=== PATIENT | male | born 1960 | race Caucasian/White ===

== ENCOUNTER → 2017-09-29 | Outpatient (REF) | payer BC | LOC: M SMT 17:55 | DX: C67.9 Malignant neoplasm of bladder, unspecified (principal) | CPT/HCPCS: 88108 ==

== ENCOUNTER → 2019-01-22 | Outpatient (POV) | payer BC ==
[~2019-01-22] VITALS: Ht 185.4 cm; Wt 108.2 kg
[~2019-01-22] MED LIST: BYST5TAB2 PO; VIAG100T PO; XARE10TA PO; XARE20TA PO
[2019-01-22 13:27] VITALS: BP 129/78
--- NOTE | 2019-01-23 09:32 | IRCOV ---
[facility] IR Consult Office Visit IR Consult Office Visit DATE: Jan 23, 2019 REASON FOR CONSULTATION/CHIEF COMPLAINT: Recurrent kidney infections. Left-sided hydronephrosis. HISTORY OF PRESENT ILLNESS: 58-year-old male with bladder cancer status post cystectomy in 2017 with ileal conduit formation. Status post chemotherapy. Was d oing well initially after the surgery. For the past several months has recurrently had pyelonephritis every month requiring antibiotics. At least one hospital admission for sepsis. Last time he was admitted and worked up, imaging was performed and patient reportedly has left-sided hydronephrosis. There is also concern for a possible stone at the ureteral anastomosis and tumor recurrence for which urology has requested a brush biopsy. Patient is active and works in construction. He denies fevers or chills. No pain. No problems with drainage from the ostomy. ALLERGIES: Please see below. HOME MEDICATIONS: Please see below. PAST MEDICAL HISTORY: 1. Bladder cancer. PAST SURGICAL HISTORY: 1. Cystectomy and ileal conduit formation. FAMILY HISTORY: Nonsignificant. SOCIAL HISTORY: Lives with . Very active and independent. Denies alcohol or drugs. REVIEW OF SYSTEMS: Otherwise negative. PHYSICAL EXAMINATION: VITAL SIGNS: Please see below. GENERAL APPEARANCE: Appears comfortable at rest. No wasting. HEENT: No scleral icterus. RESPIRATORY: Symmetric breath sounds bilaterally. CARDIOVASCULAR: Normal rate. ABDOMEN: Abdomen soft nontender. Nondistended. Right lower quadrant ostomy containing urine. EXTREMITIES: Moving all 4 extremities. NEUROLOGICAL: Alert and oriented. PSYCHIATRIC: Appropriate to circumstances. LABORATORY DATA: Please see below. Imaging: No imaging available for me to review. ASSESSMENT/PLAN: 58 male with history of bladder cancer status post cystectomy and ileal conduit formation with recurrent pyelonephritis and reported left- sided hydronephrosis identified on outside imaging. Will obtain outside imaging for review. Patient will benefit from left percutaneous nephrostomy access with possible nephro ileal conduit stenting. At the same time per request of urology, I can do a brush biopsy of the distal anastomosis. With this access, progressive angioplasty for any stricture will be an option to try to get him stent free. We discussed the risks and benefits of the procedure. I will schedule the patient for the procedure under moderate sedation and request for outside imaging. I spent 30 minutes in consultation with the patient. Thank you for this referral. VS, I&O, 24H, Fishbone Vital Signs/I&O Vital Signs Date Time Temp Pulse Resp B/P (MAP) Pulse Ox O2 Delivery O2 Flow Rate FiO2 01/22/19 13:27 98.3 104 18 129/78 (95) 95 CHANTAL RYAN MD Jan 23, 2019 09:32
== END ==
LOC: M IRPOV 13:10
PROVIDERS: ATTEND Radiology Diagnostic Radiology
DX: N13.30 Unspecified hydronephrosis (principal); Z87.448 Personal history of other diseases of urinary system; Z92.21 Personal history of antineoplastic chemotherapy; Z85.51 Personal history of malignant neoplasm of bladder

== ENCOUNTER → 2019-02-15 | Outpatient (CLI) | payer BC ==
[~2019-02-15] MED LIST changes: +ISOVUE-300 61% 50ML VIAL (Q9967) As Ordered ONE; +LIDOCAINE 1% MDV 20ML VIAL As Ordered ONE; +MIDAZOLAM INJ 2 MG/2 ML VIAL (J2250) As Ordered ONE; +PERCOCET 5MG/325MG TAB As Ordered ONE; +PERCOCET 5MG/325MG TAB PO ONE; +PERCOCET 5MG/325MG TAB PO PRN; -XARE20TA PO; +ceFAZolin 1GM INJ (J0690 PER 500MG) As Ordered ONE; +cefTRIAXone SOD 1 GM VIAL (J0696) As Ordered ONE; +diphenhydrAMINE INJ 50MG/ML VIAL (J1200) As Ordered ONE; +fentaNYL 100 MCG/2 ML INJECTION (J3010) As Ordered ONE
--- NOTE | 2019-02-15 10:04 | IRHP ---
[facility] IR Pre-Procedure H & P General Date of Service: Feb 15, 2019 Procedure: Same Day Surgery Interval History and Physical I have seen the patient and reviewed last H & P performed within 30 days. There is no significant interval change. History of Present Illness Chief Complaint The patient is a 58-year-old male admitted with a reason for visit of Ureteral Stricture. PRE-PROCEDURE DIAGNOSIS: ureteral stricture. conduit. HEART: normal rate. LUNGS: normal breathing at rest. ASA Classification ASA Classification: II-Mild systemic disease Mallampati Score: I, II NPO: Yes Problems with prior sedation: No Obstructive Sleep Apnea: No Plan moderate sedation Allergies Coded Allergies: No Known Allergies (Unverified , 02/15/19) Home Medications Scheduled Nebivolol HCl (Bystolic), 5 MG PO DAILY, (Reported) Rivaroxaban (Xarelto), 20 MG PO DAILY, (Reported) Discontinued Medications Sildenafil Citrate (Viagra), 100 MG PO 3XW, (Reported) Discontinued Reason: Pt states not taking VS, I&O, 24H, Fishbone Vital Signs/I&O Vital Signs Date Time Temp Pulse Resp B/P (MAP) Pulse Ox O2 Delivery O2 Flow Rate FiO2 02/15/19 09:34 97.9 97 16 98 CHANTAL RYAN MD Feb 15, 2019 10:04
[2019-02-15 10:58] LABS: CHOLESTEROL RISK RATIO 3.311 (<5)
--- NOTE | 2019-02-15 11:36 | POST-OPPD ---
Postoperative Procedure Note Date Of Procedure: Feb 15, 2019 Time Of Procedure: 11:35 PREOPERATIVE DIAGNOSIS: ureteral stricture POSTOPERATIVE DIAGNOSIS: ureteral stricture FINDINGS: ureteral stricture PROCEDURE: left neph SURGEON: Urvashi ANESTHESIA: moderate sedation ESTIMATED BLOOD LOSS: < 5 ml COMPLICATIONS: none POSTOPERATIVE CONDITION:stable CHANTAL RYAN MD Feb 15, 2019 11:36
[2019-02-15 13:55] VITALS: BP 120/77
--- NOTE | 2019-02-15 16:43 | REP ---
IR Percutaneous nephrostomy catheter placement using fluoroscopy and ultrasound guidance. IR nephrostogram and ureterogram. IR moderate sedation. Ultrasound of the left kidney. Clinical information: Status post cystectomy with ileal conduit. Left-sided hydronephrosis and infections. Ureteral stricture. Left flank pain. Physician: Dr Landin. Procedure: The patient was advised of the benefits, risks and alternatives of the procedure and informed consent was obtained. The time-out was performed with verification of the patient's name, MRN, site of procedure and type of procedure to be performed. The patient was positioned in the prone position on the angiographic table. The site was prepped and draped in the usual sterile fashion. Moderate sedation was performed by the physician including the presence of an independent trained observer who assisted in monitoring the patient's level of consciousness and physiologic status. Following the administration of fentanyl and Versed , the physician spent 45 minutes of face to face time with the patient. A chief controller tower radiograph reveals no gross abnormality. The anticipated puncture site on the flank was anesthetized with lidocaine. Using ultrasound guidance, a midpole calyx was accessed with a 21 gauge Chiba needle. A nephrostogram and ureterogram was performed demonstrating hydronephrosis. An 018 wire was then advanced into the collecting system. The needle was then exchanged for a non vascular introducer set. An Amplatz wire was then advanced into the ureter. A 10-Belarusian nephrostomy catheter was then advanced into the renal collecting system. The pigtail was formed and locked in position. A final nephrostogram ureterogram was performed confirming position of the pigtail in the renal pelvis and hydronephrosis. There is hydroureter and distal ureteral obstruction. The catheter was sutured in position with 2-0 Prolene and a sterile dressing was applied. The catheter was placed gravity drainage. The patient tolerated the procedure well and was returned to the PRU in stable condition. EBL: < 5 ml. Complications: none. Conclusion: 1. Nephrostogram and ureterogram demonstrate hydronephrosis and hydroureter and distal ureteral obstruction at the anastomosis. 2. Successful left-sided nephrostomy catheter placement. Patient to follow up in IR in 2 weeks for attempt at distal recanalization. Thank you for this referral. Electronically Signed by Dee Landin MD 02/15/2019 04:42 P
== END ==
LOC: M IRPRO 09:15
PROVIDERS: ATTEND Radiology Diagnostic Radiology
DX: N13.0 Hydronephrosis with ureteropelvic junction obstruction (principal); N13.4 Hydroureter
CPT/HCPCS: 50432; 80061; 99152; 99153; C1729; C1769; C1887; C1894; J0690; J1200; J2250; J3010; Q9967

== ENCOUNTER → 2019-03-08 | Outpatient (CLI) | payer BC ==
[~2019-03-08] MED LIST changes: -PERCOCET 5MG/325MG TAB As Ordered ONE; -PERCOCET 5MG/325MG TAB PO ONE; -PERCOCET 5MG/325MG TAB PO PRN; +XARE20TA PO; -cefTRIAXone SOD 1 GM VIAL (J0696) As Ordered ONE
--- NOTE | 2019-03-08 13:24 | POST-OPPD ---
Postoperative Procedure Note Date Of Procedure: Mar 08, 2019 Time Of Procedure: 13:23 PREOPERATIVE DIAGNOSIS: ilieal conduit stricture. bladder ca POSTOPERATIVE DIAGNOSIS: ilieal conduit stricture. bladder ca FINDINGS: ilieal conduit stricture PROCEDURE: ilieal conduit/ureteral stenting SURGEON: cris ANESTHESIA: mod sed ESTIMATED BLOOD LOSS: < 5 ml COMPLICATIONS: none POSTOPERATIVE CONDITION: stable CHANTAL RYAN MD Mar 08, 2019 13:24
[2019-03-08 14:30] VITALS: BP 120/68
--- NOTE | 2019-03-08 15:11 | REP ---
IR Nephrostomy to reverse ileal conduit stent conversion. IR Nephrostogram and ureterogram. IR ureteral stenting. IR ileoconduit stenting. IR moderate sedation. Clinical information: Bladder cancer status post cystectomy, ureteral diversion and ileal conduit formation. Right lower quadrant ostomy. Left ureteral anastomotic obstruction. Would like internalization of existing left nephrostomy catheter. Physician: Dr. Landin. Procedure: The patient was advised of the benefits, risks and alternatives of the procedure and informed consent was obtained. The time-out was performed with verification of the patient's name, MRN, site of procedure and type of procedure to be performed. The patient was positioned in the semi prone position on the angiographic table. The site was prepped and draped in the usual sterile fashion. Moderate sedation was performed by the physician including the presence of an independent trained observer who assisted in monitoring the patient's level of consciousness and physiologic status. Following the administration of Versed and Fentanyl, the physician spent 60 minutes of continuous face to face time with the patient. A photonic laboratory technician radiograph reveals a left sided nephrostomy catheter in expected location. An initial nephrostogram and ureterogram was performed through the preexisting catheter confirming pigtail positioned in the renal collecting system. There is hydronephrosis, hydroureter and distal ureteral obstruction. Lidocaine was injected around the catheter exit site. The catheter and sutures were cut, a glide wire was passed into the renal collecting system. The preexisting nephrostomy catheter was removed over the wire. A 5-Georgian glide catheter was advanced over the wire under fluoroscopy guidance. The catheter in conjunction with the wire was used to catheterize the ureter. The catheter and wire in conjunction were used to negotiate the distal ureteral obstruction into the ileal conduit and out of the right lower quadrant ostomy. The wire was exchanged for a superstiff Amplatz wire. The catheter was removed over the wire. And 8.5 Georgian APDL was destrung and advanced in reverse fashion through the ostomy, over the wire under fluoroscopy guidance into the left renal pelvis. The wire and inner stiffener were removed. Injection of contrast through the ileal conduit stent catheter confirms location within the ureter and in the renal pelvis. A final nephrostogram and ureterogram was performed confirming position of the pigtail in the renal pelvis and hydroureter. An ostomy bag was placed over the ostomy. The patient tolerated the procedure well and was returned to the PRU in stable condition. EBL: Less than 5 ml. Complications: None. Conclusion: 1. Nephrostogram and ureterogram demonstrate hydroureter and distal ureteral ileoconduit obstruction 2. Successful recanalization of distal ureteral/ileal conduit obstruction and placement of reverse ileal conduit stent through the ostomy into the left kidney. Due to patient discomfort we did not proceed with a brush biopsy on this occasion. Patient to return in 3 months for brush biopsy of the stricture and routine exchange of the catheter. Thank you this referral. Electronically Signed by Dee Landin MD 03/08/2019 03:10 P
== END ==
LOC: M IRPRO 08:31
PROVIDERS: ATTEND Radiology Diagnostic Radiology
DX: N13.1 Hydronephrosis with ureteral stricture, not elsewhere classified (principal); N13.4 Hydroureter; C67.9 Malignant neoplasm of bladder, unspecified; Z93.2 Ileostomy status; Z90.6 Acquired absence of other parts of urinary tract
CPT/HCPCS: 50693; 99152; 99153; C1729; C1769; C1887; J0690; J1200; J2250; J3010; Q9967

== ENCOUNTER → 2019-05-17 | Outpatient (REF) | payer BC ==
[~2019-05-17] MED LIST changes: -ISOVUE-300 61% 50ML VIAL (Q9967) As Ordered ONE; -LIDOCAINE 1% MDV 20ML VIAL As Ordered ONE; -MIDAZOLAM INJ 2 MG/2 ML VIAL (J2250) As Ordered ONE; -XARE20TA PO; -ceFAZolin 1GM INJ (J0690 PER 500MG) As Ordered ONE; -diphenhydrAMINE INJ 50MG/ML VIAL (J1200) As Ordered ONE; -fentaNYL 100 MCG/2 ML INJECTION (J3010) As Ordered ONE
== END ==
LOC: M SMT 13:20
PROVIDERS: ATTEND Urology
DX: N39.0 Urinary tract infection, site not specified (principal); C67.9 Malignant neoplasm of bladder, unspecified

== ENCOUNTER → 2019-06-05 | Outpatient (CLI) | payer BC ==
[~2019-06-05] MED LIST changes: +ISOVUE-300 61% 50ML VIAL (Q9967) As Ordered ONE; +LIDOCAINE 1% MDV 20ML VIAL As Ordered ONE; +LIDOCAINE 2% INJ 100 MG/5 ML SDV (FOR ANES.) ONE; +LR 1,000 ML IV SCH; +METOPROLOL 5 MG/5 ML VIAL ONE; +ONDANSETRON 4MG/2ML VIAL (J2405) IV PRN; +ONDANSETRON 4MG/2ML VIAL (J2405) ONE; +XARE20TA PO; +ceFAZolin 1GM INJ (J0690 PER 500MG) As Ordered ONE; +dexameTHASONE 4 MG/ML 1ML VIAL (J1100) ONE; +fentaNYL 100 MCG/2 ML INJECTION (J3010) IV PRN; +propofoL 200 MG/20 ML VIAL ONE
[2019-06-05 11:25] VITALS: BP 138/71
--- NOTE | 2019-06-06 11:26 | REP ---
IR conduit stent exchange. IR Ileoconduit stent exchange with fluoroscopy guidance. IR brush biopsies at ureteral stricture. Clinical information: Bladder cancer status post cystectomy and ileal conduit formation. Recurrent stricture at the ureteral anastomosis. Physician: Dr. Landin. Procedure: The patient was advised of the benefits, risks and alternatives of the procedure and informed consent was obtained. The time-out was performed with verification of the patient's name, MRN, site of procedure and type of procedure to be performed. The patient was positioned in the supine position on the angiographic table. The site was prepped and draped in the usual sterile fashion. Sedation was performed by the anesthesia team. The physician spent 45 minutes of continuous face to face time with the patient. A transportation maintenance supervisor radiograph reveals a left nephroureteral stent in place. A nephrostogram was performed through the existing ileoconduit stent and this demonstrates appropriate positioning in the renal pelvis. There is moderate hydronephrosis. A wire was advanced through the stent into the renal collecting system and the catheter was removed over the wire. An 8-Macanese sheath was advanced over the wire into the renal collecting system. A second safety wire was advanced through the sheath into the renal collecting system. One wire was removed and a brush biopsy device was advanced through the sheath under fluoroscopy guidance to the ureteral stricture. Zoe biopsy was obtained under fluoroscopy guidance, at the ureteral stricture. The device was removed and placed in Cytolyte. The sheath was removed over the wire. A new 8.5 Macanese multipurpose catheter was advanced over the wire and positioned in the renal collecting system. The wire was removed. A final nephrostogram confirms appropriate location within the ureter and renal collecting system. The patient tolerated the procedure well and was returned to PRU in stable condition. EBL: Less than 5 ml. Complications: None. Impression: 1. Successful brush biopsy at ureteral stricture. 2. Successful conduit stent exchange. The patient should return in 12 weeks for routine exchange. Thank you this referral. Electronically Signed by Dee Landin MD 06/06/2019 07:51 A
== END ==
LOC: M IRPRO 08:02
PROVIDERS: ATTEND Radiology Diagnostic Radiology
DX: N13.1 Hydronephrosis with ureteral stricture, not elsewhere classified (principal); C67.9 Malignant neoplasm of bladder, unspecified; I48.91 Unspecified atrial fibrillation; F17.210 Nicotine dependence, cigarettes, uncomplicated; K21.9 Gastro-esophageal reflux disease without esophagitis; Z79.01 Long term (current) use of anticoagulants
CPT/HCPCS: 50688; 75984; 88173; 99152; 99153; C1729; C1769; C1894; J0690; J1100; J2405; Q9967

== ENCOUNTER → 2019-08-12 | Outpatient (REF) | payer BC ==
[~2019-08-12] MED LIST changes: -ISOVUE-300 61% 50ML VIAL (Q9967) As Ordered ONE; -LIDOCAINE 1% MDV 20ML VIAL As Ordered ONE; -LIDOCAINE 2% INJ 100 MG/5 ML SDV (FOR ANES.) ONE; -LR 1,000 ML IV SCH; -METOPROLOL 5 MG/5 ML VIAL ONE; -ONDANSETRON 4MG/2ML VIAL (J2405) IV PRN; -ONDANSETRON 4MG/2ML VIAL (J2405) ONE; -ceFAZolin 1GM INJ (J0690 PER 500MG) As Ordered ONE; -dexameTHASONE 4 MG/ML 1ML VIAL (J1100) ONE; -fentaNYL 100 MCG/2 ML INJECTION (J3010) IV PRN; -propofoL 200 MG/20 ML VIAL ONE
== END ==
LOC: M SMT 13:12
PROVIDERS: ATTEND Urology
DX: C67.9 Malignant neoplasm of bladder, unspecified (principal)

== ENCOUNTER → 2019-11-25 | Outpatient (CLI) | payer BC ==
[~2019-11-25] MED LIST changes: +CIPR-249 PO; +HEARTAB PO; +METO1TAB7 PO; +TRAM50TA2 PO
== END ==
LOC: M LABSMTC 14:19
PROVIDERS: ATTEND Anesthesiology
DX: Z01.818 Encounter for other preprocedural examination (principal)
CPT/HCPCS: C9803; U0003

== ENCOUNTER → 2019-11-28 | Outpatient (CLI) | payer BC ==
[~2019-11-28] MED LIST changes: +ISOVUE-300 61% 50ML VIAL As Ordered ONE; +LIDOCAINE 1% MDV 20ML VIAL As Ordered ONE; +METOCLOPRAMIDE INJ 10MG/2ML VIAL (J2765 PER 1) As Ordered ONE; +METOCLOPRAMIDE INJ 10MG/2ML VIAL (J2765 PER 1) IV PRN; +NS 1,000 ML IV SCH; +ONDANSETRON 4MG/2ML VIAL As Ordered ONE; +ONDANSETRON 4MG/2ML VIAL IV PRN; +PERCOCET 5MG/325MG TAB As Ordered ONE; +PERCOCET 5MG/325MG TAB PO PRN; +ceFAZolin 1GM VIAL (J0690 PER 500MG) As Ordered ONE; +oxyCODONE 5MG TAB As Ordered ONE; +oxyCODONE 5MG TAB PO ONE
--- NOTE | 2019-11-28 12:11 | POST-OPPD ---
Postoperative Procedure Note Date Of Procedure: Nov 28, 2019 Time Of Procedure: 12:08 PREOPERATIVE DIAGNOSIS: ileal conduit. left anastomotic stricture. hydronephrosis. POSTOPERATIVE DIAGNOSIS: same FINDINGS: same PROCEDURE: left ilial conduit anastomotic angioplasty to 6 mm and 10 F nephroureteral stent placement SURGEON: cris ESTIMATED BLOOD LOSS: < 5 ml COMPLICATIONS:none POSTOPERATIVE CONDITION: stable CHANTAL RYAN MD Nov 28, 2019 12:11
[2019-11-28] MEDS: PERCOCET 5MG/325MG TAB PO PRN ×2 (12:35→13:27)
[2019-11-28 14:35] VITALS: BP 124/57
--- NOTE | 2019-12-04 15:53 | REP ---
IR Percutaneous left nephrostomy access using fluoroscopy and ultrasound guidance. IR Nephrostogram and ureterogram. IR Recanalization of stenotic ureteral anastomosis and antegrade catheterization of ileal conduit. IR Angioplasty and dilation of ureteral anastomosis. IR Nephroureteral stent placement. Clinical information: Status post cystectomy with ileal conduit. Left flank pain, hydronephrosis and hydroureter due to ureteral anastomotic stricture. Physician: Dr Landin. Procedure: The patient was advised of the benefits, risks and alternatives of the procedure and informed consent was obtained. The time-out was performed with verification of the patient's name, MRN, site of procedure and type of procedure to be performed. The patient was positioned in the prone position on the angiographic table. The site was prepped and draped in the usual sterile fashion. General anesthesia was performed by the anesthesia team. The physician spent 90 minutes face to face time with the patient. A traveling storekeeper radiograph reveals no gross abnormality. The anticipated puncture site on the flank was anesthetized with lidocaine. The left renal pelvis was accessed under fluoroscopy guidance using a 21 gauge Chiba needle. A nephrostogram and ureterogram was performed demonstrating hydronephrosis and hydroureter. A second 21 gauge Chiba needle was then used under fluoroscopy guidance to access the lower pole azul. A wire was advanced through the needle under fluoroscopy guidance down the ureter. The needle was then exchanged for a non vascular introducer set which was advanced under fluoroscopy guidance, over the wire and down into the ureter. A Glidewire was then advanced through the introducer set, under fluoroscopy guidance down the ureter. A kumpe catheter was advanced over the wire and used to catheterize the distal ureter. A ureterogram was performed and this demonstrates hydroureter and hydronephrosis. No passage of contrast through the ureteral anastomosis into the ileal conduit. The catheter in conjunction with a wire was then used under fluoroscopy guidance to recanalize the stenotic ureteral anastomosis and catheterize the ileal conduit. The wire was removed and injection of contrast confirmed appropriate catheterization of the ileoconduit. An Amplatz wire was advanced through the catheter into the ileal conduit. The catheter was removed over the wire. A 6 x 100 mm Marcell balloon was then advanced over the wire, under fluoroscopy guidance and positioned at the ureteral anastomosis. Prolonged inflation and dilation of the ureteral anastomosis was performed. The balloon was then deflated and removed over the wire. A 10-Telugu nephroureteral stent was then advanced over the wire and positioned with the distal pigtail in the ileal conduit. Injection of contrast confirmed positioning of the nephroureteral stent in the ureter and ileal conduit. No extravasation. The catheter was sutured in position with 2-0 Prolene and a sterile dressing was applied. The catheter was placed gravity drainage. The patient tolerated the procedure well and was returned to the recovery in stable condition. EBL: < 5 ml. Complications: None. Conclusion: 1. Nephrostogram and ureterogram demonstrate left hydronephrosis and hydroureter and complete ureteral anastomotic blockage. 2. Successful left-sided antegrade nephrostomy access, ureteral anastomotic angioplasty and nephroureteral ileal conduit stent placement. 3. Patient to return in 3 months for routine exchange and repeat angioplasty. Thank you for this referral. Cc Dr. Jensen Electronically Signed by Dee Landin MD 12/04/2019 03:51 P
== END ==
LOC: M IRPRO 08:17
PROVIDERS: ATTEND Radiology Diagnostic Radiology
DX: C67.9 Malignant neoplasm of bladder, unspecified (principal); N13.30 Unspecified hydronephrosis; N13.4 Hydroureter; N13.5 Crossing vessel and stricture of ureter without hydronephrosis; N52.32 Erectile dysfunction following radical cystectomy; I48.91 Unspecified atrial fibrillation; F17.210 Nicotine dependence, cigarettes, uncomplicated; K21.9 Gastro-esophageal reflux disease without esophagitis; Z79.01 Long term (current) use of anticoagulants; Z79.899 Other long term (current) drug therapy; Z92.21 Personal history of antineoplastic chemotherapy
CPT/HCPCS: 50690; 50706; 53899; J0690; J2405; J2765; Q9967

== ENCOUNTER → 2019-12-03 | Outpatient (POV) | payer BC ==
[~2019-12-03] MED LIST changes: -ISOVUE-300 61% 50ML VIAL As Ordered ONE; -LIDOCAINE 1% MDV 20ML VIAL As Ordered ONE; -METOCLOPRAMIDE INJ 10MG/2ML VIAL (J2765 PER 1) As Ordered ONE; -METOCLOPRAMIDE INJ 10MG/2ML VIAL (J2765 PER 1) IV PRN; -NS 1,000 ML IV SCH; -ONDANSETRON 4MG/2ML VIAL As Ordered ONE; -ONDANSETRON 4MG/2ML VIAL IV PRN; -PERCOCET 5MG/325MG TAB As Ordered ONE; -PERCOCET 5MG/325MG TAB PO PRN; -ceFAZolin 1GM VIAL (J0690 PER 500MG) As Ordered ONE; -oxyCODONE 5MG TAB As Ordered ONE; -oxyCODONE 5MG TAB PO ONE
--- NOTE | 2019-12-04 10:31 | IRPN ---
[facility] IR Progress Note IR Progress Note DATE: Dec 03, 2019 Patient requested this telephone consultation. Duration of call 30 minutes. FOLLOW-UP: Patient with ilial conduit and left ureteral anastomotic stricture, underwent left nephroureteral stent placement and anastomotic angioplasty to 6 mm, last . Patient states he developed a fever the day after for which he was started on Levaquin. No further fevers or chills since starting antibiotics. He reports minimal discomfort at the left flank. Good drainage in bag, he states it is clear yellow. It is still attached to a bag. Good drainage from ilial conduit. IMPRESSION: Transient fever 24 hours post procedure likely related to transient bacteremia from access, manipulation and angioplasty, despite perioperative antibiotics. Has since resolved. Complete course of antibiotics. Patient may now cap the nephroureteral catheter, we will mail the patient a cap. Continue daily flushing of nephU. Follow up for routine exchange in 3 months. Thank you for this referral cc Dr. Jensen Allergies Coded Allergies: No Known Allergies (Unverified , 02/15/19) CHANTAL RYAN MD Dec 04, 2019 10:31
== END ==
LOC: M TMIRPOV 10:28
PROVIDERS: ATTEND Radiology Diagnostic Radiology
DX: Z48.816 Encounter for surgical aftercare following surgery on the genitourinary system (principal)

== ENCOUNTER → 2020-01-30 | Outpatient (CLI) | payer BC ==
[~2020-01-30] MED LIST changes: +ISOVUE-300 61% 50ML VIAL As Ordered ONE; +LIDOCAINE 1% MDV 20ML VIAL As Ordered ONE; +MIDAZOLAM INJ 2MG/2ML VIAL (J2250 PER 1MG) As Ordered ONE; +PROMETHAZINE INJ 25 MG/ML VIAL (J2550) As Ordered ONE; +ceFAZolin 1GM VIAL (J0690 PER 500MG) As Ordered ONE; +diphenhydrAMINE 50MG/ML VIAL (J1200) As Ordered ONE; +fentaNYL 100 MCG/2 ML INJECTION (J3010) As Ordered ONE
[2020-01-30 10:56] LABS: HEMATOCRIT 47.3 % (42.0-52.0); HEMOGLOBIN 15.8 g/dl (13.5-17.5); MEAN CORPUSCULAR HEMOGLOBIN 29.2 pg (27.0-33.0); MEAN CORPUSCULAR HGB CONC 33.4 g/dl (32.0-36.5); MEAN CORPUSCULAR VOLUME 87.4 fl (80.0-96.0); PLATELET COUNT, AUTOMATED 215 10^3/uL (150-450); RED BLOOD COUNT 5.41 10^6/uL (4.30-6.10); WHITE BLOOD COUNT 12.2 10^3/uL (4.0-10.0)
[2020-01-30 11:14] LABS: CALCIUM LEVEL 9.4 MG/DL (8.8-10.2); CREATININE FOR GFR 1.42 MG/DL (0.70-1.30); GLOMERULAR FILTRATION RATE 54.1 (>49)
--- NOTE | 2020-01-30 11:43 | POST-OPPD ---
Postoperative Procedure Note Date Of Procedure: Jan 30, 2020 Time Of Procedure: 11:37 PREOPERATIVE DIAGNOSIS: Ilial conduit stenosis. Bladder cancer. Cystectomy. POSTOPERATIVE DIAGNOSIS: same. FINDINGS: left distal ureteral occlusion. Hydronephrosis and hydroureter. PROCEDURE: Left nephU conduit stent exchanged for 10 F left nephrostomy tube. Attached to gravity drainage. Patient to follow-up with urology at [facility] for revision ileal conduit surgery as planned. The nephrostomy catheter may be capped and/or removed post surgery, by urology and/or IR if appropriate. If the catheter is still in place in 3 months time, patient will need to return to us for nephrostogram, ureterogram and catheter removal and/or exchange. Continue daily flushes of nephrostomy catheter. Physician: Urvashi ANESTHESIA: Moderate sedation ESTIMATED BLOOD LOSS: Less than 5 mL COMPLICATIONS: None POSTOPERATIVE CONDITION: Stable Cc [facility] urology patient's surgeon CC CHANTAL Min MD Jan 30, 2020 11:43
[2020-01-30 12:10] VITALS: BP 96/54
--- NOTE | 2020-02-20 12:29 | POST-OPPD ---
Postoperative Procedure Note Date Of Procedure: Jan 30, 2020 Time Of Procedure: 16:00 Full note IR nephroureteral stent to nephrostomy catheter conversion. IR Nephrostogram and ureterogram. Clinical information: Bladder cancer status post cystectomy with ileal conduit and ureteral anastomotic stricture. Left-sided hydronephrosis. Physician: Dr. Landin. Procedure: The patient was advised of the benefits, risks and alternatives of the procedure and informed consent was obtained. The time-out was performed with verification of the patient's name, MRN, site of procedure and type of procedure to be performed. The patient was positioned in the prone position on the angiographic table. The site was prepped and draped in the usual sterile fashion. Moderate sedation was performed by the physician including the presence of an independent trained observer who assisted and monitored the patient's level of consciousness and physiologic status. Following the administration of fentanyl and Versed , the physician spent 30 minutes of continuous face to face time wi th the patient. A reliability technicians radiograph reveals an antegrade left nephroureteral ileal conduit stent. The catheter was cut, an Amplatz wire was passed through the catheter under fluoroscopy guidance and the catheter was removed over the wire. A new 10 -Czech nephrostomy catheter was advanced over the wire, under fluoroscopy guidance into the renal collecting system. The wire was removed and pigtail was formed. Injection of contrast confirms location of the pigtail in the left renal pelvis. There is hydronephrosis and hydroureter. The ureter is not patent to the ileal conduit. The catheter was secured in position with 2-0 Prolene and a sterile dressing was applied. The catheter was placed gravity drainage. The patient tolerated the procedure well and was returned to the [facility] in stable condition. EBL: Less than 5 ml. Complications: None. Conclusion: 1. Nephrostogram and ureterogram demonstrate hydronephrosis and hydroureter. The ureter is not patent to the ileal conduit. 2. Successful left-sided nephroureteral catheter to nephrostomy conversion. Patient to follow-up for surgery at [facility]. The nephrostomy catheter may be capped and/or removed after surgery if appropriate. If the catheter remains in place greater than 10 weeks, patient must return for routine exchange. Thank you this referral. Cc Patient's urologist at [facility]. CHANTAL LANDIN MD Feb 20, 2020 12:29
== END ==
LOC: M IRPRO 10:12
PROVIDERS: ATTEND Radiology Diagnostic Radiology
DX: T83.85XA Stenosis due to genitourinary prosthetic devices, implants and grafts, initial encounter (principal); X58.XXXA Exposure to other specified factors, initial encounter; C67.9 Malignant neoplasm of bladder, unspecified; N13.30 Unspecified hydronephrosis; N13.5 Crossing vessel and stricture of ureter without hydronephrosis
CPT/HCPCS: 50688; 75984; 80048; 85027; 99152; 99153; C1729; C1769; J0690; J1200; J2250; J3010; Q9967

== ENCOUNTER → 2020-04-17 | Outpatient (CLI) | payer BC ==
[~2020-04-17] MED LIST changes: -ISOVUE-300 61% 50ML VIAL As Ordered ONE; -LIDOCAINE 1% MDV 20ML VIAL As Ordered ONE; -MIDAZOLAM INJ 2MG/2ML VIAL (J2250 PER 1MG) As Ordered ONE; -PROMETHAZINE INJ 25 MG/ML VIAL (J2550) As Ordered ONE; -ceFAZolin 1GM VIAL (J0690 PER 500MG) As Ordered ONE; -diphenhydrAMINE 50MG/ML VIAL (J1200) As Ordered ONE; -fentaNYL 100 MCG/2 ML INJECTION (J3010) As Ordered ONE
--- NOTE | 2020-04-17 16:34 | REP ---
INDICATION: N13.5-URETERAL STRICTURE; LT, S/P REPAIR. COMPARISON: None. FINDINGS: Multiple ultrasonographic images of the right kidney show the right kidney to measure 12.1 x 5.4 x 4.7 cm.. The renal cortical echotexture is unremarkable. There are no masses. There is good corticomedullary differentiation. There is no hydronephrosis. There are no perinephric fluid collections. Multiple ultrasonographic images of the left kidney show the left kidney to measure 5.6 x 4.2 x 4.7 cm.. The renal cortical echotexture is unremarkable. There are no masses. There is good corticomedullary differentiation. There is mild hydronephrosis. There are no perinephric fluid collections. IMPRESSION: 1. 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 2. Probable mild compensatory enlargement of the right kidney. 3. Mild left-sided hydronephrosis. <Electronically signed by Cali Abbott > 04/17/20 [id number]
== END ==
LOC: M RAD 14:50
PROVIDERS: ATTEND Urology
DX: N13.30 Unspecified hydronephrosis (principal)

== ENCOUNTER → 2021-12-01 | Outpatient (REF) | payer BC | LOC: M SMT 13:46 | PROVIDERS: ATTEND Urology | DX: C67.9 Malignant neoplasm of bladder, unspecified (principal) ==

== ENCOUNTER 2023-01-21 19:31 | Emergency (ER) | payer BC ==
[~2023-01-21] VITALS: Ht 185.4 cm; Wt 111.7 kg
[2023-01-21 20:37] LABS: VENOUS BASE EXCESS -0.4 (-2.0-2.0); VENOUS HCO3 27.5 MMOL/L (23.0-27.0); VENOUS O2 SATURATION 63.3 % (60.0-80.0); VENOUS PARTIAL PRESSURE CO2 57.3 mmHg (38.0-50.0); VENOUS PARTIAL PRESSURE O2 32.2 mmHg (30.0-50.0); VENOUS PH 7.299 UNITS (7.330-7.430); VENOUS STANDARD HCO3 23.1 MMOL/L; VENOUS TOTAL CO2 29.3 MMOL/L (24.0-28.0)
[2023-01-21 20:44] LABS: BASO # 0.1 10^3/uL (0.0-0.2); BASO % 0.4 % (0.0-1.0); EOS # 0.1 10^3/uL (0.0-0.5); HEMATOCRIT 49.9 % (42.0-52.0); HEMOGLOBIN 16.4 g/dl (13.5-17.5); LYMPH # 2.3 10^3/uL (1.5-5.0); LYMPH % 19.4 % (24.0-44.0); MEAN CORPUSCULAR HEMOGLOBIN 30.1 pg (27.0-33.0); MEAN CORPUSCULAR HGB CONC 32.9 g/dl (32.0-36.5); MEAN CORPUSCULAR VOLUME 91.6 fl (80.0-96.0); MONO # 0.9 10^3/uL (0.0-0.8); MONO % 7.7 % (2.0-8.0); NEUTROPHILS # 8.3 10^3/uL (1.5-8.5); PLATELET COUNT, AUTOMATED 221 10^3/uL (150-450); RED BLOOD COUNT 5.45 10^6/uL (4.30-6.10); WHITE BLOOD COUNT 11.7 10^3/uL (4.0-10.0)
[2023-01-21 21:05] LABS: ALBUMIN 3.5 G/DL (3.2-5.2); ALKALINE PHOSPHATASE 124 U/L (46-116); ALT/SGPT 31 U/L (7.0-40); AST/SGOT 19 U/L (<34); BILIRUBIN,TOTAL 0.5 MG/DL (0.3-1.2); BLOOD UREA NITROGEN 23 MG/DL (9-23); CALCIUM LEVEL 9.5 MG/DL (8.3-10.6); CARBON DIOXIDE LEVEL 31 MMOL/L (20-31); CHLORIDE LEVEL 106 MMOL/L (98-107); CREATININE FOR GFR 1.27 MG/DL (0.70-1.30); GLOMERULAR FILTRATION RATE > 60.0 (>49); GLUCOSE, FASTING 105 MG/DL (74-106); POTASSIUM SERUM 4.8 MMOL/L (3.5-5.1); SODIUM LEVEL 143 MMOL/L (136-145); TOTAL PROTEIN 6.5 G/DL (5.7-8.2)
[2023-01-21 21:07] LABS: INR 0.97; PROTHROMBIN TIME 12.6 SECONDS (12.5-14.5)
[2023-01-21 21:08] LABS: PARTIAL THROMBOPLASTIN TIME 29.7 SECONDS (24.8-34.2)
[2023-01-21] MEDS ORDERED: NS 1,000 ML IV ONE (21:15)
[2023-01-21] MEDS ORDERED: ISOVUE-370 76% 100ML VIAL As Ordered ONE (21:17)
[2023-01-21] MEDS ORDERED: LevoFLOXacin 750 MG TABLET PO ONE ×2 (23:00)
[2023-01-21] MEDS ORDERED: LEVO750T14 PO (23:04)
[2023-01-21 23:17] VITALS: BP 137/71; TEMP 98.7; O2SAT 98
== END 2023-01-21 23:19 | disposition home or self-care (01) ==
LOC: M ED 19:31
DX: N30.01 Acute cystitis with hematuria (principal); I10 Essential (primary) hypertension; K50.90 Crohn's disease, unspecified, without complications; F17.200 Nicotine dependence, unspecified, uncomplicated; Z79.811 Long term (current) use of aromatase inhibitors; Z79.899 Other long term (current) drug therapy
CPT/HCPCS: 74177; 80053; 81000; 81015; 82803; 83605; 85025; 85610; 85730; 86850; 86900; 86901; 87088; 87186; 96360; 96361; 99284; Q9967

== ENCOUNTER → 2024-03-15 | Outpatient (REF) | payer BC ==
[~2024-03-15] MED LIST changes: +BYST1TAB2 PO; -BYST5TAB2 PO; +LEVO750T14 PO
== END ==
LOC: M SMT 12:28
PROVIDERS: ATTEND Urology
DX: C67.9 Malignant neoplasm of bladder, unspecified (principal)

== ENCOUNTER → 2025-03-18 | Outpatient (REF) | payer BC ==
[~2025-03-18] MED LIST changes: -LEVO750T14 PO; +LEVO75TAB PO
== END ==
LOC: M SMT 15:16
PROVIDERS: ATTEND Urology
DX: C67.9 Malignant neoplasm of bladder, unspecified (principal); R82.89 Other abnormal findings on cytological and histological examination of urine